=== PATIENT | male | born 1955 | race Two or more races ===

== ENCOUNTER 2018-01-30 08:04 | Outpatient (CLI) | payer OTHER | END 2018-01-30 18:39 | disposition home or self-care (01) | LOC: TOM 08:04 | DX: C61 Malignant neoplasm of prostate (principal) ==

== ENCOUNTER → 2018-01-30 | Outpatient (CLI) | payer OTHER | END | disposition home or self-care (01) | LOC: NUCLEAR 08:00 | DX: C61 Malignant neoplasm of prostate (principal) | CPT/HCPCS: 78306; 78320; A9503 ==